=== PATIENT | female | born 1970 | race Caucasian/White ===

== ENCOUNTER → 2022-12-27 | Outpatient (CLI) | payer BC, OTHER ==
--- NOTE | 2022-12-27 19:40 | Diagnostic Imaging Report ---
INDICATION: Screening. EXAMINATION: 3D bilateral screening mammogram with CAD. The current study was also evaluated with a Computer Aided Detection (CAD) system. COMPARISON: There is no prior study available for comparison. FINDINGS: The breasts are predominantly fatty. There is no primary or secondary sign of malignancy noted. IMPRESSION: 1. There is no evidence of malignancy. 2. The patient should have her annual bilateral screening mammogram on schedule in December of 2023. ACR BI-RADS Category 1: Negative. Result letter will be mailed to the patient. Note: At least 10% of breast cancer is not imaged by mammography. Dictated by: Dictated on workstation # [id number]
== END ==
LOC: RAD 14:45
PROVIDERS: ATTEND Nurse Practitioner Family
DX: Z12.31 Encounter for screening mammogram for malignant neoplasm of breast (principal)
CPT/HCPCS: 77063; 77067

== ENCOUNTER 2023-01-09 06:14 | Outpatient (CLI) | payer BC ==
[~2023-01-09] VITALS: Ht 165.1 cm; Wt 114.8 kg
[2023-01-09] MEDS ORDERED: LEVO25CA4 PO (14:13)
[2023-01-09] MEDS ORDERED: LISI10TA25 PO (14:13)
[2023-01-09] MEDS ORDERED: PEDI18TA7 PO (14:13)
[2023-01-09] MEDS ORDERED: ELDE350C PO (14:13)
[2023-01-09] MEDS ORDERED: LORA10CA PO (14:13)
== END 2023-01-09 14:17 | disposition home or self-care (01) ==
LOC: PREOP 06:14
PROVIDERS: ATTEND Internal Medicine
DX: Z01.818 Encounter for other preprocedural examination (principal)

== ENCOUNTER 2023-01-18 07:56 | Day surgery (SDC) | payer BC ==
--- NOTE | 2023-01-09 07:38 | HISTORY AND PHYSICAL ---
COLONOSCOPY HISTORY AND PHYSICAL HISTORY OF PRESENT ILLNESS: The patient is a pleasant 52-year-old white female referred for her first screening colonoscopy by Dr. Elise Vanessa. She is deemed to be of higher than average risk. Her father has had colon polyps removed. Her maternal grandmother diagnosed with colon cancer in her 60s and uncle likely same decade with colon cancer diagnosed on her father's side of the family. She denies bright red blood per rectum, melena, bowel habit change or change in weight. She is being seen in the office prior to the procedure due to a stage II obesity, BMI between 35 and 40, and history of hypertension as well as on thyroid replacement for Darryn's thyroiditis. The patient reports no past history of cardiovascular or pulmonary disease. MEDICATIONS: On admission include euthyrox 25 mcg daily and lisinopril 10 mg daily. PAST SURGICAL HISTORY: Significant for right sided carpal tunnel surgery in 2005. FAMILY HISTORY: Noted in the HPI. Father also has a history of hyperlipidemia, hypertension and has had an infarct in his late 50s. Mother has a history of hypertension. SOCIAL HISTORY: She is with 1 child. 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 REVIEW OF SYSTEMS: CONSTITUTIONAL: Denies night sweats, chills, fever or change in weight. GI: As noted in the HPI. PULMONARY: Denies cough, wheezing or shortness of breath. CARDIOVASCULAR: Denies chest pain, orthopnea, PND, pedal edema or dyspnea on regular exertion. PHYSICAL EXAMINATION: GENERAL: Reveals a pleasant, overweight white female in no acute distress. VITAL SIGNS: Weight 253 pounds, 5 feet 10 inches tall. Blood pressure 120/84. HEENT: Unremarkable. Sclerae nonicteric. CHEST: Clear to auscultation. CARDIOVASCULAR: Reveals a regular rate and rhythm without murmur, S3, or S4. ABDOMEN: Soft, supple without mass, organomegaly, or tenderness. EXTREMITIES: No cyanosis, clubbing or edema. ASSESSMENT AND PLAN: No medical contraindications to proceeding with screening colonoscopy, deemed to be higher than average risk with family history of several second-degree relatives with colon cancer including maternal grandmother and a paternal uncle. Prep instructions were given. Electronic medical record was reviewed and questions were answered. Thank you for referral of this pleasant lady. Job ID: [id number] DocumentID: [id number] Dictated Date: 01/08/2023 10:28:14 Band Sawmill Operator Date: 01/08/2023 11:11:00 Dictated By: TRELL WHITLEY MD
[~2023-01-18] VITALS: Ht 165 cm; Wt 114.8 kg
[~2023-01-18 07:56] MED LIST: ELDE350C PO; LEVO25CA4 PO; LISI10TA25 PO; LORA10CA PO; PEDI18TA7 PO
[2023-01-18] MEDS ORDERED: LACTATED RINGERS 1,000 ML IV STA (07:59)
[2023-01-18 08:15] VITALS: BP 135/75
--- NOTE | 2023-01-18 08:31 | Pre-Op Note & Conscious Sedat ---
Pre-Operative Progress Note Date H&P Reviewed: Jan 18, 2023 Time H&P Reviewed: 08:31 History & Physical: H&P Reviewed, Patient Examed, No changes noted Pre-Op Diagnosis: screening Moderate Sedation PreProcedure ASA Score 2 Airway Lungs Heart ASA score ASA 1: a normal healthy patient ASA 2: a patient with a mild systemic disease (mid diabetes, controlled hypertension, obesity ASA 3: a patient with a severe systemic disease that limits activity (angina, COPD, prior Myocardial infarction) ASA 4: a patient with an incapacitating disease that is a constant threat to life (CHF, renal failure) ASA 5: a moribund patient not expected to survive 24 hrs. (ruptured aneurysm) ASA 6: a declared brain- patient whose organs are being harvested. For emergent operations, add the letter E after the classification Mallampati Classification Grade 2 Sedation Plan Analgesia, Amnesia, Plan communicated to team members, Discussed options with patient/fam, Discussed risks with patient/fam The patient is an appropriate candidate to undergo the planned procedure, sedation, and anesthesia. The patient immediately re-assessed prior to indication. TRELL WHITLEY MD Jan 18, 2023 08:31
[2023-01-18] MEDS ORDERED: PROPOFOL INJECTION 50 ML IV ONE (08:55)
[2023-01-18] MEDS ORDERED: MIDAZOLAM 2 MG/2 ML (VERSED) VIAL ONE (08:55)
[2023-01-18 09:30] VITALS: BP 114/67
[2023-01-18 09:35] VITALS: BP 119/66
--- NOTE | 2023-01-18 09:36 | Progress Note-Post Operative ---
Post-Procedure Note Physician (s)/Cbx Operator (s) Physician TRELL WHITLEY MD Pre-Procedure Diagnosis Pre-Procedure Diagnosis: screening Post-Procedure Diagnosis Post-operative diagnosis: Prior to undergoing colonoscopy digital rectal evaluation was performed. Anal sphincter tone was normal and the perianal reflexes intact. No abnormalities noted on digital inspection of the anal canal or distal rectal vault.The colonoscope was then inserted into the rectum and under direct visualization advanced to the cecum. The cecum was identified by identification of the ileocecal valve and the cecal strap. Photographic documentation was obtained. A careful inspection was made as the colonoscope was withdrawn. Quality the prep was good. Findings: There are no evidence for internal or external hemorrhoids in the rectum sigmoid colon descending colon splenic flexure transverse colon hepatic flexure ascending colon and cecum were unremarkable with no evidence for diverticular disease or neoplasia. Assessment: Normal colonoscopy to the cecum under good prep conditions. Considering family history would advocate consideration for repeat screening colonoscopy in 5 years. I thank you for the furl this pleasant lady sincerely Trell Whitley MD. CC: TRELL Johnson MD, MD Jan 18, 2023 09:36
[2023-01-18 09:55] VITALS: BP 125/72
--- NOTE | 2023-01-18 10:20 | Anesthesia-General Post-Op ---
MAC Patient Condition Mental Status/LOC: Same as Preop Cardiovascular: Satisfactory Nausea/Vomiting: Absent Respiratory: Satisfactory Pain: Controlled Complications: Absent Post Op Complications Complications None Follow Up Care/Instructions Patient Instructions None needed. Anesthesiology Discharge Order Discharge Order Patient is doing well, no complaints, stable vital signs, no apparent adverse anesthesia problems. No complications reported per nursing. GUDELIA HENSON CRNA Jan 18, 2023 10:20
== END 2023-01-18 10:25 | disposition home or self-care (01) ==
LOC: ENDO 07:56
PROVIDERS: ATTEND Internal Medicine
DX: Z12.11 Encounter for screening for malignant neoplasm of colon (principal); Z80.0 Family history of malignant neoplasm of digestive organs; Z83.71 Family history of colonic polyps; E06.3 Autoimmune thyroiditis; Z79.890 Hormone replacement therapy; Z28.310 Unvaccinated for COVID-19; E66.9 Obesity, unspecified; Z68.41 Body mass index [BMI] 40.0-44.9, adult
CPT/HCPCS: 84703